=== PATIENT | male | born 1990 | race Caucasian/White ===

== ENCOUNTER 2016-11-04 15:12 | Emergency (ER) | payer OTHER ==
[2016-11-04] MEDS ORDERED: MORPHINE SULFATE 10 MG/ML INJ IV ONE ×2 (15:33→16:06)
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
[2016-11-04] MEDS ORDERED: ONDANSETRON HCL INJ/PF 4 MG/2 ML SDV IV ONE (16:06)
[2016-11-04] MEDS ORDERED: PROPOFOL INJ 200 MG/20 ML VIAL IV ONE (17:03)
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
[2016-11-04] MEDS ORDERED: HYDROCODONE/ACETAMINOPHEN 5-325 MG 6 TAB/DSPK PO PRN (18:27)
[2016-11-04 18:47] VITALS: BP 135/80
== END 2016-11-04 18:47 | disposition home or self-care (01) ==
LOC: ER 15:12
PROC: 0PSHXZZ Reposition Right Radius, External Approach (ICD-10-PCS; principal; 2016-11-04)
DX: S52.124A Nondisplaced fracture of head of right radius, initial encounter for closed fracture (principal); S53.124A Posterior dislocation of right ulnohumeral joint, initial encounter; V86.99XA Unspecified occupant of other special all-terrain or other off-road motor vehicle injured in nontraffic accident, initial encounter
CPT/HCPCS: 99283; 96374; 96375; 73070; 24655; L3650; J2270; J2405; J2704